=== PATIENT | male | born 1960 | race Caucasian/White ===

== ENCOUNTER 2016-06-15 14:06 | Observation (INO) | payer BC ==
[~2016-06-15] VITALS: Ht 167.6 cm; Wt 69.4 kg
[2016-06-15] MEDS ORDERED: NITROGLYCERIN 2% OINT 1 INCH PKT TOPICAL ONE (16:30)
[2016-06-15] MEDS ORDERED: ONDANSETRON 4 MG VIAL IV PRN (16:40)
[2016-06-15] MEDS ORDERED: LORAZEPAM 0.5 MG TAB PO PRN (16:40)
[2016-06-15] MEDS ORDERED: TRAMADOL 50 MG TAB PO PRN (16:40)
[2016-06-15] MEDS ORDERED: MORPHINE 2 MG/ML SYR IV PRN (16:40)
[2016-06-15] MEDS ORDERED: ALU/MAG/SIM 30 ML UDC PO PRN (16:40)
[2016-06-15] MEDS ORDERED: SALINE FLUSH 10 ML FLUSH PRN (16:40)
[2016-06-15] MEDS ORDERED: TEMAZEPAM 7.5 MG CAP PO PRN (16:40)
[2016-06-15] MEDS ORDERED: DOCUSATE SOD 100 MG CAP PO PRN (16:40)
[2016-06-15] MEDS ORDERED: TEMAZEPAM 15 MG CAP PO PRN (16:40)
[2016-06-15] MEDS ORDERED: NITROGLYCERIN SL 0.4 MG TAB SL PRN (16:40)
[2016-06-15 18:14] VITALS: BP_SYST 170; RESP 16; TEMP 97.8
[2016-06-15 18:36] VITALS: Ht 167.6 cm; Wt 69.4 kg
[2016-06-15 19:20] VITALS: BP_SYST 131; RESP 18; TEMP 98.5
[2016-06-15 20:36] VITALS: RESP 18
[2016-06-15] MEDS: ACETAMINOPHEN 325 MG TAB PO PRN (22:09)
[2016-06-15 22:55] VITALS: BP_SYST 149; RESP 16; TEMP 97.9
[2016-06-15] MEDS: SALINE FLUSH 10 ML FLUSH SCH (23:26)
[2016-06-16 02:59] VITALS: BP_SYST 120; RESP 16; TEMP 97.8
[2016-06-16] MEDS ORDERED: SODIUM CHLORIDE 0.9% FLUSH BAG 500 ML IV SCH (06:00)
[2016-06-16] MEDS: ACETAMINOPHEN 325 MG TAB PO PRN (06:21)
[2016-06-16 07:39] VITALS: BP_SYST 138; RESP 16; TEMP 97.6
[2016-06-16] MEDS ORDERED: ASPIRIN 81 MG CHEW TAB PO SCH (08:00)
[2016-06-16] MEDS: SALINE FLUSH 10 ML FLUSH SCH (08:47)
[2016-06-16 11:41] VITALS: BP_SYST 145; RESP 16; TEMP 97.8
[2016-06-16 12:16] VITALS: BP_SYST 145; RESP 16; TEMP 97.8
[2016-06-16 12:20] VITALS: BP_SYST 145; RESP 16; TEMP 97.8
== END 2016-06-16 12:04 | disposition home or self-care (01) ==
LOC: ENRESERV → ENRESERVDT → ENRESERVTM → ER 14:06 → EMR 16:38 → ENPENDDIS 16:38 → PCU2 18:14
PROVIDERS: ADMIT Specialist; ATTEND Specialist
CPT/HCPCS: 36415; 71010; 80053; 80061; 82550; 82553; 83735; 84484; 85025; 85610; 85730; 93005; 94799